=== PATIENT | female | born 1985 | race African-American/Black ===

== ENCOUNTER → 2016-07-19 | Emergency (ER) | payer OTHER ==
[~2016-07-19] MED LIST: IBUPROFEN 400 MG TABLET (FP) PO ONE; TETRACAINE 0.5% OPHTH SOLN 2 ML BOTTLE ONE; TETRACAINE 0.5% OPHTH SOLN 2 ML BOTTLE OS ONE
[2016-07-19 02:56] VITALS: BMI 19.0
--- NOTE | 2016-07-19 04:13 | PDOC ---
History of Present Illness - General Chief Complaint: Headache Stated Complaint: HEADACHE,THROAT PAIN Time Seen by Provider: 07/19/16 02:18 History Source: Patient Exam Limitations: No Limitations - History of Present Illness Initial Comments: 07/19/16 04:23 30-year-old female with no medical history presents to the emergency department complaining of bilateral ear pain. Patient states while drinking water, she was talking causing the water to come out her nose and have pressure sensation to her left greater than right ear. Patient denies dizziness, headaches, lightheadedness, nasal congestion, difficulty breathing. Timing/Duration: reports: 1 hour Associated Symptoms: reports: denies symptoms Past History - Past Medical History Allergies/Adverse Reactions: Allergies Allergy/AdvReac Type Severity Reaction Status Date / Time No Known Allergies Allergy Verified 07/19/16 02:56 Home Medications: Ambulatory Orders Sulfamethoxazole/Trimethoprim [Bactrim Ds Tablet] 1 each PO BID #6 tablet GI Disorders: Yes (CHRONIC CONSTIPATION) - Psycho/Social/Smoking Cessation Hx Suicidal Ideation: No Smoking History: Never smoked Have you smoked in the past 12 months: No Information on smoking cessation initiated: No Hx Alcohol Use: No Drug/Substance Use Hx: No Substance Use Type: None Review of Systems - Review of Systems Able to Perform ROS?: Yes Comments:: 07/19/16 04:24 CONSTITUTIONAL: Absent: fever, chills, diaphoresis, generalized weakness, malaise, loss of appetite HEENT: Absent: rhinorrhea, nasal congestion, throat pain, throat swelling, difficulty swallowing, mouth swelling, ear pain, eye pain, visual Changes CARDIOVASCULAR: Absent: chest pain, loss of consciousness, palpitations, irregular heart rate, peripheral edema RESPIRATORY: Absent: cough, shortness of breath, dyspnea with exertion, orthopnea, wheezing, stridor, hemoptysis GASTROINTESTINAL: Absent: abdominal pain, abdominal distension, nausea, vomiting, diarrhea, constipation, melena, hematochezia Is the patient limited [place] proficient: No *Physical Exam - Vital Signs Last Vital Signs Temp Pulse Resp BP Pulse Ox 97.5 F L 75 18 123/75 100 07/19/16 02:51 07/19/16 02:51 07/19/16 02:51 07/19/16 02:51 07/19/16 02:51 - Physical Exam Comments: 07/19/16 04:25 GENERAL: Well developed, well nourished. Awake and alert. No acute distress. HEENT: Normocephalic, atraumatic. PERRLA, EOMI. No conjunctival pallor. Sclera are non- icteric. Moist mucous membranes. Oropharynx is clear. NECK: Supple. Full ROM. No JVD. Carotid pulses 2+ and symmetric, without bruits. No thyromegaly. No lymphadenopathy. CARDIOVASCULAR: Regular rate and rhythm. No murmurs, rubs, or gallops. Distal pulses are 2+ and symmetric. PULMONARY: No evidence of respiratory distress. Lungs clear to auscultation bilaterally. No wheezing, rales or rhonchi. ABDOMINAL: Soft. Non-tender. Non-distended. No rebound or guarding. No organomegaly. Normoactive bowel sounds. MUSCULOSKELETAL Normal range of motion at all joints. No bony deformities or tenderness. No CVA tenderness. EXTREMITIES: No cyanosis. No clubbing. No edema. No calf tenderness. SKIN: Warm and dry. Normal capillary refill. No rashes. No jaundice. NEUROLOGICAL: Alert, awake, appropriate. Cranial nerves 2-12 intact. No deficits to light touch and temperature in face, upper extremities and lower extremities. No motor deficits in the in face, upper extremities and lower extremities. Normoreflexic in the upper and lower extremities. Normal speech. Toes are down- going bilaterally. Gait is normal without ataxia. PSYCHIATRIC: Cooperative. Good eye contact. Appropriate mood and affect. ED Treatment Course - Medications Given in the ED: ED Medications Discontinued Medications Generic Name Dose Route Start Last Admin Trade Name Freq PRN Reason Stop Dose Admin Tetracaine HCl 1 drop 07/19/16 03:10 07/19/16 03:20 Pontocaine OS 07/19/16 03:11 1 drop ONCE ONE Administration Progress Note - Progress Note Progress Note: 0415hrs: Pt says she feels better and wishes to be d/c *DC/Admit/Observation/Transfer Diagnosis at time of Disposition: Ear pain, right, Ear pain, right, Ear pain, left - Discharge Dispostion Disposition: HOME Condition at time of disposition: Improved Admit: No - Referrals Referrals: Pedrito Pizano MD [Staff Physician] - - Patient Instructions Additional Instructions: Return back to the emergency department for severe/persistent or worsening symptoms
[2016-07-19 04:30] VITALS: BP 126/74; PULSE 78; TEMP 97.8
== END | disposition home or self-care (01) ==
LOC: JER 01:32
DX: H66.93 Otitis media, unspecified, bilateral (principal)
CPT/HCPCS: 99281-25

== ENCOUNTER 2018-11-16 10:02 | Emergency (ER) | payer SELFPAY ==
[2018-11-16 10:16] VITALS: BP 112/71; PULSE 84; TEMP 98.1; BMI 22.1
[2018-11-16 12:32] LABS: BASO % 0.9 % (0-2.0); EOS % 1.6 % (0-4.5); HEMATOCRIT 39.3 % (32.4-45.2); HEMOGLOBIN 13.2 GM/dL (10.7-15.3); LYMPH % 41.6 % (8-40); MCH 29.4 pg (25.7-33.7); MCHC 33.5 g/dl (32.0-36.0); MEAN CELL VOLUME 87.8 fl (80-96); MEAN PLT VOLUME 8.7 fl (7.5-11.1); MONO % 7.6 % (3.8-10.2); NEUT % 48.3 % (42.8-82.8); PLATELET COUNT 263 K/MM3 (134-434); RBC 4.48 M/mm3 (3.60-5.2); RDW 13.3 % (11.6-15.6); WHITE BLOOD COUNT 5.4 K/mm3 (4.0-10.0)
[2018-11-16 12:49] LABS: EPI CELLS 12.3 /HPF (0-5/HPF); HYALINE CASTS 15 /lpf (0-8); PH,URINE 8.5 (5.0-8.0); URINE APPEARANCE CLOUDY; URINE BACTERIA 301.3 /hpf (NEGATIVE); URINE BILIRUBIN NEGATIVE (NEGATIVE); URINE COLOR YELLOW; URINE GLUCOSE (UA) NEGATIVE (NEGATIVE); URINE KETONE NEGATIVE (NEGATIVE); URINE LEUK ESTERASE 2+ (NEGATIVE); URINE NITRITE NEGATIVE (NEGATIVE); URINE PROTEIN NEGATIVE (NEGATIVE); URINE RBC 1 /hpf (0-4); URINE UROBILINOGEN 0.2 mg/dL (0.2-1.0); URINE WBC 15 /hpf (0-5)
[2018-11-16 12:50] LABS: ALBUMIN 3.8 g/dl (3.4-5.0); BILIRUBIN,TOTAL 0.5 mg/dL (0.2-1); BLOOD UREA NITROGEN 6.3 mg/dL (7-18); CALCIUM 9.3 mg/dL (8.5-10.1); CREATININE 0.8 mg/dL (0.55-1.3); POTASSIUM 4.1 mmol/L (3.5-5.1); TOT PROT 7.6 g/dl (6.4-8.2)
[2018-11-16 13:32] LABS: YEAST NONE SEEN (NEGATIVE)
[2018-11-16] MEDS ORDERED: IBUPROFEN 400 MG TABLET (FP) PO ONE (14:08)
--- NOTE | 2018-11-16 14:19 | PDOC ---
History of Present Illness - General Chief Complaint: Wound Stated Complaint: LUMP ON L BREAST Time Seen by Provider: 11/16/18 10:49 History Source: Patient - History of Present Illness Associated Symptoms: denies: fever/chills, nausea/vomiting, weakness Past History - Past Medical History Allergies/Adverse Reactions: Allergies Allergy/AdvReac Type Severity Reaction Status Date / Time No Known Allergies Allergy Verified 11/16/18 10:11 Home Medications: Ambulatory Orders NK [No Known Home Medication] 11/16/18 GI Disorders: Yes (CHRONIC CONSTIPATION) - Suicide/Smoking/Psychosocial Hx Smoking History: Never smoked Have you smoked in the past 12 months: No Hx Alcohol Use: No Drug/Substance Use Hx: No Substance Use Type: None Review of Systems - Review of Systems Constitutional: No: Chills, Fever Respiratory: No: Cough, Shortness of Breath Cardiac (ROS): No: Chest Pain ABD/GI: No: Nausea, Vomiting *Physical Exam - Vital Signs Last Vital Signs Temp Pulse Resp BP Pulse Ox 98.1 F 84 16 112/71 100 11/16/18 10:14 11/16/18 10:14 11/16/18 10:14 11/16/18 10:14 11/16/18 10:14 - Physical Exam General Appearance: Yes: Appropriately Dressed. No: Apparent Distress HEENT: positive: Normal Voice Neck: positive: Supple Respiratory/Chest: positive: Other (breast symmetric w/ ~2x3 cm tender mass in the 12 0'clock position to L breast, no cervical/axillary lymphadenopathy, no nipple changes, no erythema). negative: Respiratory Distress Integumentary: positive: Dry, Warm Neurologic: positive: Alert, Normal Mood/Affect ED Treatment Course - LABORATORY CBC & Chemistry Diagram: 11/16/18 12:20 11/16/18 12:20 - ADDITIONAL ORDERS Additional order review: Laboratory Results 11/16/18 11/16/18 11/16/18 12:20 12:20 12:00 Sodium 138 Potassium 4.1 Chloride 105 Carbon Dioxide 27 Anion Gap 5 L BUN 6.3 L Creatinine 0.8 Est GFR (CKD-EPI)AfAm 113.86 Est GFR (CKD-EPI)NonAf 98.24 Random Glucose 90 Calcium 9.3 Total Bilirubin 0.5 AST 17 ALT 22 Alkaline Phosphatase 65 Total Protein 7.6 Albumin 3.8 Serum , Qual Negative Urine Color Yellow Urine Appearance Cloudy Urine pH 8.5 H Ur Specific [place] 1.012 Urine Protein Negative Urine Glucose (UA) Negative Urine Ketones Negative Urine Blood 3+ H Urine Nitrite Negative Urine Bilirubin Negative Urine Urobilinogen 0.2 Ur Leukocyte Esterase 2+ H Urine WBC (Auto) 15 Urine RBC (Auto) 1 Urine Casts (Auto) 15 U Pathogenic Cast Auto None seen U Epithel Cells (Auto) 12.3 Urine Bacteria (Auto) 301.3 Urine Yeast (Auto) None seen 11/16/18 12:20 RBC 4.48 MCV 87.8 MCHC 33.5 RDW 13.3 MPV 8.7 Neutrophils % 48.3 Lymphocytes % 41.6 H Monocytes % 7.6 Eosinophils % 1.6 Basophils % 0.9 - RADIOLOGY Radiology Studies Ordered: Category Date Time Status BREAST US LEFT COMPLETE [US] Routine Ultrasound 11/16/18 11:17 Completed Medical Decision Making - Medical Decision Making 11/16/18 13:56 32 yo F, no sig hx, here w/ painful breast mass. Pt states several months ago, she noticed L breast mass, painful and constant. No nipple discharge, unexplained weight loss, f/c. No h/o same and no fmhx of breast disease or breast cancer. Seen by PMD and now has US scheduled in 4 days. Here today because she feels anxious and reports insomnia since sxs began. see exam Breast mass Unlikely abscess given duration, ?fibrocystic diseases, r/o malignancy -pain control -labs -US 11/16/18 14:26 US w/ "fibrocystic changes" in the 11 to 12 0' clock position. Labs unremarkable. Results discussed with patient and mother. I consulted with Dr. Mcguire, who sees breast conditions, but was unable to hear back from Maykel. so pt given phone number to follow-up with Patricia for an evaluation this week for possible aspiration, etc. Pt given copy of labs/US to f/u with her pmd this week as well *DC/Admit/Observation/Transfer Diagnosis at time of Disposition: Breast mass in female - Discharge Dispostion Disposition: HOME - Referrals Referrals: Good Mcguire MD [Staff Physician] - - Patient Instructions Printed Discharge Instructions: Fibrocystic Disease Additional Instructions: Take motrin [id number] as needed for pain and follow-up with Dr. Mcguire this week for further evaluation of breast mass - Post Discharge Activity Forms/Work/School Notes: Back to Work
== END 2018-11-16 14:51 | disposition home or self-care (01) ==
LOC: JERFT 10:02
DX: N63.22 Unspecified lump in the left breast, upper inner quadrant (principal); N60.12 Diffuse cystic mastopathy of left breast
CPT/HCPCS: 36415; 76641-TC-LT; 80053; 81003; 84703; 85025; 87086; 99281-25